=== PATIENT | female | born 1955 | race Caucasian/White ===

== ENCOUNTER 2017-11-14 14:40 | Inpatient (IN) | payer MEDICARE, MEDICAID ==
[~2017-11-14] VITALS: Ht 157.5 cm; Wt 66.2 kg
[2017-11-14] MEDS ORDERED: PRED2.5T4 PO (14:53)
[2017-11-14] MEDS ORDERED: MIRT15TA PO (14:53)
[2017-11-14] MEDS ORDERED: PROG1 MT (14:53)
[2017-11-14] MEDS ORDERED: THIJ IM (14:53)
[2017-11-14] MEDS ORDERED: KAYEXALATE (14:53)
[2017-11-14] MEDS ORDERED: FOLI-43 PO (14:53)
[2017-11-14] MEDS ORDERED: proair (14:53)
[2017-11-14] MEDS ORDERED: MYCO180T PO (14:53)
[2017-11-14] MEDS ORDERED: OMEP20CA10 PO (14:53)
[2017-11-14] MEDS ORDERED: CLON0.1T PO (14:53)
[2017-11-14] MEDS ORDERED: FURO-151 PO (14:53)
[2017-11-14] MEDS ORDERED: oscal (14:53)
[2017-11-14] MEDS ORDERED: ASPI-1159 PO (14:53)
[2017-11-14] MEDS ORDERED: METO5TAB69 PO (14:53)
[2017-11-14] MEDS ORDERED: MULT-1146 PO (14:53)
[2017-11-14] MEDS ORDERED: LEVO100T PO (14:53)
[2017-11-14 17:32] LABS: BASOPHILS % 0.8 % (0.0-2.0); EOSINOPHILS % 0.1 % (0.0-5.0); HEMATOCRIT. 37.9 % (36.0-48.0); HEMOGLOBIN. 12.5 g/dL (12.0-16.0); LYMPHOCYTES % 12.2 % (20.0-50.0); MEAN CORPUSCULAR HEMOGLOBIN 29.1 pg (28.0-32.0); MEAN CORPUSCULAR VOLUME 87.9 fL (81.0-99.0); MONOCYTES % 5.6 % (2.0-8.0); NEUTROPHILS % 81.3 % (40.0-76.0); PLATELET 184 x1000/uL (130-400); RED BLOOD CELL COUNT 4.31 mill/uL (4.2-5.4); RED CELL DISTRIBUTION WIDTH 16.6 % (11.6-14.6)
[2017-11-14 17:35] LABS: CHLORIDE 93 mEq/L (98-107)
[2017-11-14 17:36] LABS: INR 1.2; PROTHROMBIN TIME 12.6 sec (9.4-11.6)
[2017-11-14] MEDS ORDERED: CEFTRIAXONE 1 G PREMIX 50 ML IV ONE (19:00)
[2017-11-14] MEDS ORDERED: AZITHROMYCIN 500 MG in DEXT 5% WATER 250 ML IV ONE (19:00)
[2017-11-14] MEDS ORDERED: NA PHOS,M-B/NA PHOS,DI-BA ENEMA 118ML PR PRN (19:30)
[2017-11-14] MEDS ORDERED: GUAIFENESIN 200MG/10ML SUGAR FREE UDC PO PRN (19:30)
[2017-11-14] MEDS ORDERED: DIPHENHYDRAMINE 50MG/ML VIAL IV PRN (19:30)
[2017-11-14] MEDS ORDERED: CLONIDINE 0.1MG TABLET PO PRN (19:30)
[2017-11-14] MEDS ORDERED: DOCUSATE SODIUM 100MG CAPSULE PO PRN (19:30)
[2017-11-14] MEDS ORDERED: IPRATROPIUM/ALBUTEROL 0.5-3(2.5)MG/3ML NEB INH PRN (19:30)
[2017-11-14] MEDS ORDERED: ACETAMINOPHEN 325MG TABLET PO PRN (19:30)
[2017-11-14] MEDS ORDERED: MAGNESIUM/ALUMINUM HYDROXIDE/SIMETHICONE 30ML UDC PO PRN (19:30)
[2017-11-14] MEDS ORDERED: METOPROLOL TARTRATE 25MG TABLET PO SCH (21:00)
[2017-11-14] MEDS ORDERED: FAMOTIDINE 20MG TABLET PO SCH (21:00)
[2017-11-14] MEDS ORDERED: POTASSIUM CHLORIDE 20MEQ TABLET SR PO SCH (21:32)
[2017-11-14] MEDS ORDERED: ZOLPIDEM TARTRATE 5MG TABLET PO PRN (21:36)
[2017-11-14] MEDS ORDERED: TRAMADOL 50MG TABLET PO PRN (21:36)
[2017-11-14] MEDS ORDERED: LORAZEPAM 0.5MG TABLET PO PRN (21:37)
[2017-11-14] MEDS ORDERED: ONDANSETRON HCL 4MG/2ML VIAL IV PRN (21:37)
[2017-11-14 21:40] VITALS: BP 128/71
[2017-11-14 22:15] VITALS: BP 128/71
[2017-11-14] MEDS: FUROSEMIDE 40MG/4ML VIAL IVP SCH (23:17)
[2017-11-14] MEDS: GUAIFENESIN/DM 600MG/30MG ER TAB 12HR PO SCH (23:18)
[2017-11-14] MEDS: SPIRONOLACTONE 25MG TABLET PO SCH (23:18)
[2017-11-14] MEDS: TACROLIMUS 1MG CAPSULE PO SCH (23:20)
[2017-11-14 23:21] LABS: CREATINE KINASE MB FRACTION 2.3 ng/mL (0.5-3.6)
[2017-11-15] VITALS: BP 136/86
[2017-11-15 04:00] VITALS: BP 121/76
[2017-11-15 05:57] LABS: BASOPHILS % 0.9 % (0.0-2.0); EOSINOPHILS % 0.2 % (0.0-5.0); HEMATOCRIT. 35.7 % (36.0-48.0); HEMOGLOBIN. 11.7 g/dL (12.0-16.0); LYMPHOCYTES % 11.1 % (20.0-50.0); MEAN CORPUSCULAR VOLUME 88.7 fL (81.0-99.0); MEAN PLATELET VOLUME 7.7 fl (7.4-10.4); MONOCYTES % 8.3 % (2.0-8.0); NEUTROPHILS % 79.5 % (40.0-76.0); PLATELET 150 x1000/uL (130-400); RED BLOOD CELL COUNT 4.02 mill/uL (4.2-5.4); RED CELL DISTRIBUTION WIDTH 16.3 % (11.6-14.6)
[2017-11-15] MEDS: LEVOTHYROXINE SODIUM 100MCG TABLET PO SCH (06:22)
[2017-11-15 06:27] LABS: CHLORIDE 95 mEq/L (98-107)
[2017-11-15 06:36] LABS: HDL CHOLESTEROL 27 mg/dL (40-59)
[2017-11-15 06:39] LABS: LDL CHOLESTEROL 80 mg/dL (5-100)
[2017-11-15 06:40] LABS: CREATINE KINASE 83 IU/L (26-192)
[2017-11-15 06:44] LABS: CREATINE KINASE MB FRACTION 2.7 ng/mL (0.5-3.6)
[2017-11-15] MEDS ORDERED: POTASSIUM CHLORIDE 20MEQ/PACKET PO NR (07:30)
[2017-11-15 08:53] VITALS: BP 117/73
[2017-11-15] MEDS ORDERED: MYCOPHENOLATE SODIUM 180 MG TABLET.DR PO SCH (09:00)
[2017-11-15] MEDS ORDERED: ALBUMIN HUMAN 25GM/100ML (25%) IV SCH (10:00)
[2017-11-15] MEDS: AMLODIPINE 2.5MG TABLET PO SCH ×2 (10:48→20:49)
[2017-11-15] MEDS: SPIRONOLACTONE 25MG TABLET PO SCH ×2 (10:48→20:50)
[2017-11-15] MEDS: TACROLIMUS 1MG CAPSULE PO SCH ×2 (10:48→16:41)
[2017-11-15] MEDS: GUAIFENESIN/DM 600MG/30MG ER TAB 12HR PO SCH ×2 (10:48→20:49)
[2017-11-15] MEDS: FUROSEMIDE 40MG/4ML VIAL IVP SCH ×2 (10:48→20:50)
[2017-11-15] MEDS: FAMOTIDINE 20MG TABLET PO SCH (10:49)
[2017-11-15] MEDS: PREDNISONE 5MG TABLET PO SCH (10:49)
[2017-11-15] MEDS: ENOXAPARIN 30MG/0.3ML SYR SUBCUT SCH (10:49)
[2017-11-15 12:27] LABS: CLARITY URINE CLEAR (CLEAR); COLOR URINE DARK YELLOW (YELLOW); KETONES URINE NEGATIVE (NEGATIVE); LEUKOCYTE ESTERASE URINE NEGATIVE (NEGATIVE); NITRITE URINE NEGATIVE (NEGATIVE); OCCULT BLOOD URINE TRACE (NEGATIVE); PROTEIN URINE 3+ (NEGATIVE); SPECIFIC GRAVITY URINE 1.017 (1.005-1.030); UROBILINOGEN URINE 0.2 E.U./dL (0.2-1.0)
[2017-11-15 12:35] LABS: SODIUM URINE RANDOM 41 mEq/L
[2017-11-15 12:44] LABS: *AMPHETAMINES SCREEN URINE NEGATIVE (NEGATIVE); *BARBITURATES SCREEN URINE NEGATIVE (NEGATIVE); *BENZODIAZEPINES SCREEN URINE NEGATIVE (NEGATIVE); *COCAINE SCREEN URINE NEGATIVE (NEGATIVE); METHADONE URINE SCREEN NEGATIVE (NEGATIVE); PHENCYCLIDINE URINE SCREEN NEGATIVE (NEGATIVE)
[2017-11-15 12:45] VITALS: BP 120/68
[2017-11-15 12:46] LABS: OPIATES URINE SCREEN NEGATIVE (NEGATIVE)
[2017-11-15 12:47] LABS: CANNABINOID URINE SCREEN NEGATIVE (NEGATIVE)
[2017-11-15 16:22] VITALS: BP 115/75
[2017-11-15] MEDS: IPRATROPIUM/ALBUTEROL 0.5-3(2.5)MG/3ML NEB HHN SCH ×2 (16:32→20:43)
[2017-11-15] MEDS: AZITHROMYCIN 500 MG in DEXT 5% WATER 250 ML IV SCH (16:41)
[2017-11-15] MEDS: CEFTRIAXONE 1 G PREMIX 50 ML IV SCH (18:48)
[2017-11-15] MEDS ORDERED: AZITHROMYCIN 500 MG in DEXT 5% WATER 250 ML IV SCH (19:00)
[2017-11-15 20:00] VITALS: BP 110/80
[2017-11-15] MEDS ORDERED: CEFTRIAXONE 1 G PREMIX 50 ML IV SCH (20:00)
[2017-11-16] VITALS: BP 138/78
[2017-11-16] MEDS: IPRATROPIUM/ALBUTEROL 0.5-3(2.5)MG/3ML NEB HHN SCH ×4 (02:45→20:50)
[2017-11-16 04:00] VITALS: BP 125/75
[2017-11-16] MEDS: LEVOTHYROXINE SODIUM 100MCG TABLET PO SCH (06:33)
[2017-11-16 07:17] LABS: BASOPHILS % 0.8 % (0.0-2.0); EOSINOPHILS % 0.5 % (0.0-5.0); HEMOGLOBIN. 11.8 g/dL (12.0-16.0); LYMPHOCYTES % 12.1 % (20.0-50.0); MEAN CORPUSCULAR HEMOGLOBIN 28.9 pg (28.0-32.0); MEAN CORPUSCULAR VOLUME 88.5 fL (81.0-99.0); MEAN PLATELET VOLUME 7.7 fl (7.4-10.4); MONOCYTES % 5.2 % (2.0-8.0); NEUTROPHILS % 81.4 % (40.0-76.0); PLATELET 154 x1000/uL (130-400); RED BLOOD CELL COUNT 4.07 mill/uL (4.2-5.4); RED CELL DISTRIBUTION WIDTH 16.5 % (11.6-14.6)
[2017-11-16 07:36] LABS: CHLORIDE 95 mEq/L (98-107)
[2017-11-16 07:48] LABS: PHOSPHORUS 4.1 mg/dL (2.5-4.9)
[2017-11-16 07:49] LABS: CREATINE KINASE 102 IU/L (26-192); CREATINE KINASE MB FRACTION 2.6 ng/mL (0.5-3.6)
[2017-11-16 07:51] LABS: LDL CHOLESTEROL 85 mg/dL (5-100)
[2017-11-16 07:52] LABS: HDL CHOLESTEROL 27 mg/dL (40-59)
[2017-11-16 08:00] VITALS: BP 152/92
[2017-11-16] MEDS: TACROLIMUS 1MG CAPSULE PO SCH ×2 (09:12→17:33)
[2017-11-16] MEDS: GUAIFENESIN/DM 600MG/30MG ER TAB 12HR PO SCH ×2 (09:13→21:15)
[2017-11-16] MEDS: AMLODIPINE 2.5MG TABLET PO SCH (09:13)
[2017-11-16] MEDS: FUROSEMIDE 40MG/4ML VIAL IVP SCH ×2 (09:13→21:15)
[2017-11-16] MEDS: ENOXAPARIN 30MG/0.3ML SYR SUBCUT SCH (09:13)
[2017-11-16] MEDS: FAMOTIDINE 20MG TABLET PO SCH (09:14)
[2017-11-16] MEDS: SPIRONOLACTONE 25MG TABLET PO SCH ×2 (09:14→21:15)
[2017-11-16] MEDS: PREDNISONE 5MG TABLET PO SCH (09:14)
[2017-11-16] MEDS: CEFTRIAXONE 1 G PREMIX 50 ML IV SCH (09:15)
[2017-11-16] MEDS: AZITHROMYCIN 500 MG in DEXT 5% WATER 250 ML IV SCH (09:33)
[2017-11-16 11:38] LABS: T4 FREE 1.13 ng/dL (0.76-1.46)
[2017-11-16 12:00] VITALS: BP 132/79
[2017-11-16] MEDS ORDERED: DOBUTAMINE 250MG PREMIX 250 ML IV ONE (12:52)
[2017-11-16] MEDS ORDERED: DOBUTAMINE 250MG PREMIX 250 ML IV NR (13:00)
[2017-11-16] MEDS ORDERED: ATROPINE SULFATE 1MG/10ML SYR ONE (13:12)
[2017-11-16] MEDS: HYDRALAZINE HCL 50MG TABLET PO SCH ×2 (15:07→22:58)
[2017-11-16 16:00] VITALS: BP 154/76
[2017-11-16 20:00] VITALS: BP 160/84
[2017-11-16] MEDS: AMLODIPINE 5MG TABLET PO SCH (21:15)
[2017-11-17] VITALS: BP 141/80
[2017-11-17] MEDS: IPRATROPIUM/ALBUTEROL 0.5-3(2.5)MG/3ML NEB HHN SCH ×2 (01:18→09:08)
[2017-11-17 04:00] VITALS: BP 139/79
[2017-11-17] MEDS: HYDRALAZINE HCL 50MG TABLET PO SCH ×2 (06:00→06:32)
[2017-11-17 06:55] LABS: BASOPHILS % 0.5 % (0.0-2.0); EOSINOPHILS % 0.2 % (0.0-5.0); HEMATOCRIT. 33.4 % (36.0-48.0); HEMOGLOBIN. 11.1 g/dL (12.0-16.0); LYMPHOCYTES % 10.7 % (20.0-50.0); MEAN CORPUSCULAR HEMOGLOBIN 28.9 pg (28.0-32.0); MEAN CORPUSCULAR VOLUME 87.3 fL (81.0-99.0); MEAN PLATELET VOLUME 7.3 fl (7.4-10.4); MONOCYTES % 6.8 % (2.0-8.0); NEUTROPHILS % 81.8 % (40.0-76.0); PLATELET 181 x1000/uL (130-400); RED BLOOD CELL COUNT 3.83 mill/uL (4.2-5.4); RED CELL DISTRIBUTION WIDTH 16.3 % (11.6-14.6)
[2017-11-17 07:05] LABS: CHLORIDE 92 mEq/L (98-107)
[2017-11-17] MEDS ORDERED: LEVOTHYROXINE SODIUM 125MCG TABLET PO SCH (07:10)
[2017-11-17 07:18] LABS: PHOSPHORUS 3.7 mg/dL (2.5-4.9)
[2017-11-17 08:00] VITALS: BP 150/84
[2017-11-17] MEDS: FUROSEMIDE 40MG/4ML VIAL IVP SCH (08:27)
[2017-11-17] MEDS: SPIRONOLACTONE 25MG TABLET PO SCH (08:28)
[2017-11-17] MEDS: ENOXAPARIN 30MG/0.3ML SYR SUBCUT SCH (08:28)
[2017-11-17] MEDS: AMLODIPINE 5MG TABLET PO SCH (08:28)
[2017-11-17] MEDS: GUAIFENESIN/DM 600MG/30MG ER TAB 12HR PO SCH (08:28)
[2017-11-17] MEDS: PREDNISONE 5MG TABLET PO SCH (08:28)
[2017-11-17] MEDS: FAMOTIDINE 20MG TABLET PO SCH (08:28)
[2017-11-17] MEDS: TACROLIMUS 1MG CAPSULE PO SCH (08:28)
[2017-11-17] MEDS: AZITHROMYCIN 500 MG in DEXT 5% WATER 250 ML IV SCH (08:28)
[2017-11-17] MEDS: CEFTRIAXONE 1 G PREMIX 50 ML IV SCH (09:39)
[2017-11-17 12:31] VITALS: BP 147/64
== END 2017-11-17 12:12 | disposition left against medical advice (07) | DRG 871 ==
LOC: ER 17:23 → 8WST 19:08 → EDBEDREQSVC 19:08 → EDBEDREQ 19:08 → EDBEDREQTM 19:08 → SUPCPDRO 19:17 → ENRESERV 20:42
PROVIDERS: ADMIT Internal Medicine; ATTEND Internal Medicine
DX: A41.9 Sepsis, unspecified organism (principal); I21.4 Non-ST elevation (NSTEMI) myocardial infarction; J96.00 Acute respiratory failure, unspecified whether with hypoxia or hypercapnia; J18.9 Pneumonia, unspecified organism; I13.2 Hypertensive heart and chronic kidney disease with heart failure and with stage 5 chronic kidney disease, or end stage renal disease; N17.9 Acute kidney failure, unspecified; E44.0 Moderate protein-calorie malnutrition; E87.1 Hypo-osmolality and hyponatremia; I50.9 Heart failure, unspecified; I27.20 Pulmonary hypertension, unspecified; K74.60 Unspecified cirrhosis of liver; E03.9 Hypothyroidism, unspecified; E87.6 Hypokalemia; K21.9 Gastro-esophageal reflux disease without esophagitis; D64.9 Anemia, unspecified
CPT/HCPCS: 36415; 71045; 74176; 78452; 80053; 80061; 80305; 81003; 82533; 82550; 82553; 83036; 83605; 83735; 83880; 83930; 83935; 84100; 84300; 84439; 84443; 84481; 84484; 85025; 85379; 85610; 87040; 87070; 93005; 93017; 93306; 93970; 94640; 96365; 96367; 97162; 97530; 99291; A9500; J0456; J0461; J0696; J1250; J1650; J1940; J2405; J7050; J7060; J7507; J7512; J7620; P9047

== ENCOUNTER 2018-09-16 21:23 | Inpatient (IN) | payer MEDICARE, MEDICAID ==
[~2018-09-16] VITALS: Ht 162.6 cm; Wt 53.8 kg
[~2018-09-16 21:23] MED LIST: ASPI-1159 PO; CLON0.1T PO; FOLI-43 PO; FURO-151 PO; KAYEXALATE; LEVO100T PO; METO5TAB69 PO; MIRT15TA PO; MULT-1146 PO; MYCO180T PO; OMEP20CA10 PO; PRED2.5T4 PO; PROG1 MT; THIJ IM; oscal; proair
[2018-09-16] MEDS ORDERED: ONDANSETRON HCL 4MG/2ML INJ IV STA (22:22)
[2018-09-16] MEDS ORDERED: MORPHINE SULFATE 4 MG/ML CPJ (NOT FOR IM USE) IV STA (22:22)
[2018-09-16 22:49] LABS: BASOPHILS % 0.4 % (0.0-2.0); EOSINOPHILS % 0.2 % (0.0-5.0); HEMATOCRIT. 30.8 % (36.0-48.0); HEMOGLOBIN. 9.4 g/dL (12.0-16.0); LYMPHOCYTES % 2.5 % (20.0-50.0); MEAN CORPUSCULAR HEMOGLOBIN 29.3 pg (28.0-32.0); MEAN PLATELET VOLUME 7.5 fl (7.4-10.4); MONOCYTES % 3.9 % (2.0-8.0); PLATELET 141 x1000/uL (130-400); RED BLOOD CELL COUNT 3.21 mill/uL (4.2-5.4); RED CELL DISTRIBUTION WIDTH 18.8 % (11.6-14.6)
[2018-09-16 22:54] LABS: CHLORIDE 100 mEq/L (98-107); INR 1.2; PROTHROMBIN TIME 11.9 sec (9.1-11.1)
[2018-09-16] MEDS ORDERED: ACETAMINOPHEN 500MG TABLET PO ONE (23:45)
[2018-09-17] MEDS ORDERED: POTASSIUM CHLORIDE 20MEQ TABLET SR PO ONE
[2018-09-17] MEDS ORDERED: ONDANSETRON HCL 4MG/2ML INJ IV ONE (00:15)
[2018-09-17] MEDS ORDERED: LIDOCAINE HCL 1% 20ML VIAL (Pyxis) INJ INFIL ONE (00:45)
[2018-09-17] MEDS ORDERED: ACETAMINOPHEN 500MG TABLET PO ONE (02:45)
[2018-09-17 02:57] LABS: CLARITY URINE TURBID (CLEAR); COLOR URINE AMBER (YELLOW); KETONES URINE TRACE (NEGATIVE); PH URINE 5.5 (4.5-8.0); PROTEIN URINE 4+ (NEGATIVE); SPECIFIC GRAVITY URINE 1.036 (1.005-1.030)
[2018-09-17 02:58] LABS: NITRITE URINE NEGATIVE (NEGATIVE); OCCULT BLOOD URINE 3+ (NEGATIVE)
[2018-09-17 02:59] LABS: LEUKOCYTE ESTERASE URINE 1+ (NEGATIVE)
[2018-09-17] MEDS ORDERED: PIPERACILLIN/TAZOBACTAM 3.375GM/50ML PREMIX IV SCH (03:00)
[2018-09-17] MEDS ORDERED: VANCOMYCIN 1 G PREMIX 200 ML IV SCH (03:00)
[2018-09-17 08:50] VITALS: BP 110/65
[2018-09-17] MEDS ORDERED: CLONIDINE 0.1MG TABLET PO PRN (10:45)
[2018-09-17] MEDS ORDERED: DIPHENHYDRAMINE 50MG/ML VIAL IV PRN (10:45)
[2018-09-17] MEDS ORDERED: IPRATROPIUM/ALBUTEROL 0.5-3(2.5)MG/3ML NEB INH PRN (10:45)
[2018-09-17] MEDS ORDERED: HYDRALAZINE 20MG/ML VIAL IV PRN (10:45)
[2018-09-17] MEDS ORDERED: ACETAMINOPHEN 650MG/20.3ML UDC GT PRN (10:45)
[2018-09-17] MEDS ORDERED: NA PHOS,M-B/NA PHOS,DI-BA ENEMA 118ML PR PRN (10:45)
[2018-09-17] MEDS ORDERED: DOCUSATE SODIUM 100MG CAPSULE PO PRN (10:45)
[2018-09-17] MEDS ORDERED: MAGNESIUM/ALUMINUM HYDROXIDE/SIMETHICONE 30ML UDC PO PRN (10:45)
[2018-09-17] MEDS ORDERED: ACETAMINOPHEN 650MG SUPP PR PRN (10:45)
[2018-09-17] MEDS ORDERED: ONDANSETRON HCL 4MG/2ML INJ IV PRN (10:45)
[2018-09-17 11:35] LABS: HEMATOCRIT. 26.2 % (36.0-48.0); HEMOGLOBIN. 8.1 g/dL (12.0-16.0); MEAN CORPUSCULAR VOLUME 97.6 fL (81.0-99.0); MEAN PLATELET VOLUME 7.6 fl (7.4-10.4); PLATELET 108 x1000/uL (130-400); RED BLOOD CELL COUNT 2.69 mill/uL (4.2-5.4)
[2018-09-17 11:40] LABS: CHLORIDE 103 mEq/L (98-107)
[2018-09-17 12:00] VITALS: BP 128/67
[2018-09-17] MEDS ORDERED: METRONIDAZOLE 500 MG PREMIX 100 ML IV SCH (13:00)
[2018-09-17] MEDS: CEFTRIAXONE 1 G PREMIX 50 ML IV SCH (13:07)
[2018-09-17] MEDS: SODIUM CHLORIDE 0.9% INJ 3ML FLUSH IVF SCH ×2 (13:20→21:54)
[2018-09-17] MEDS ORDERED: GUAIFENESIN/CODEINE 200-20MG/10ML UDC PO PRN (15:00)
[2018-09-17 16:00] VITALS: BP 136/71
[2018-09-17] MEDS: METRONIDAZOLE 500 MG PREMIX 100 ML IV SCH ×2 (16:08→21:53)
[2018-09-17 17:00] LABS: CREATINE KINASE 74 IU/L (26-192)
[2018-09-17 17:01] LABS: CREATINE KINASE MB FRACTION < 1.0 ng/mL (0.5-3.6)
[2018-09-17] MEDS: ACETAMINOPHEN 325MG TABLET PO PRN (17:44)
[2018-09-17 20:00] VITALS: BP 124/69
[2018-09-17 23:19] LABS: CREATINE KINASE 72 IU/L (26-192)
[2018-09-17 23:20] LABS: CREATINE KINASE MB FRACTION < 1.0 ng/mL (0.5-3.6)
[2018-09-18] VITALS: BP 177/61
[2018-09-18] MEDS: GUAIFENESIN 200MG/10ML SUGAR FREE UDC PO PRN (01:33)
[2018-09-18 04:00] VITALS: BP 137/84
[2018-09-18] MEDS: METRONIDAZOLE 500 MG PREMIX 100 ML IV SCH ×3 (06:18→22:37)
[2018-09-18] MEDS: SODIUM CHLORIDE 0.9% INJ 3ML FLUSH IVF SCH ×3 (06:18→22:37)
[2018-09-18] MEDS: HYDROCODONE/ACETAMINOPHEN 5/325MG TABLET PO PRN ×2 (06:19→19:44)
[2018-09-18 06:33] LABS: BASOPHILS % 1.2 % (0.0-2.0); EOSINOPHILS % 0.4 % (0.0-5.0); HEMOGLOBIN. 8.1 g/dL (12.0-16.0); LYMPHOCYTES % 8.9 % (20.0-50.0); MEAN CORPUSCULAR HEMOGLOBIN 30.2 pg (28.0-32.0); MEAN CORPUSCULAR VOLUME 96.7 fL (81.0-99.0); MEAN PLATELET VOLUME 7.4 fl (7.4-10.4); MONOCYTES % 6.3 % (2.0-8.0); NEUTROPHILS % 83.2 % (40.0-76.0); PLATELET 107 x1000/uL (130-400); RED BLOOD CELL COUNT 2.69 mill/uL (4.2-5.4); RED CELL DISTRIBUTION WIDTH 18.7 % (11.6-14.6)
[2018-09-18 07:51] LABS: PLATELET ESTIMATE DECREASED
[2018-09-18 08:00] VITALS: BP 127/66
[2018-09-18 08:21] LABS: CHLORIDE 102 mEq/L (98-107)
[2018-09-18 08:28] LABS: LDL CHOLESTEROL 51 mg/dL (5-100)
[2018-09-18 08:29] LABS: HDL CHOLESTEROL 39 mg/dL (40-59)
[2018-09-18 12:00] VITALS: BP 118/69
[2018-09-18] MEDS: CEFTRIAXONE 1 G PREMIX 50 ML IV SCH (13:14)
[2018-09-18] MEDS ORDERED: SODIUM BICARBONATE 4% (2.4MEQ) 5ML VIAL IV ONE (13:24)
[2018-09-18] MEDS ORDERED: LIDOCAINE HCL 1% 20ML VIAL (Pyxis) INJ ONE (13:24)
[2018-09-18 14:38] LABS: *AMPHETAMINES SCREEN URINE NEGATIVE (NEGATIVE); *BARBITURATES SCREEN URINE NEGATIVE (NEGATIVE); *BENZODIAZEPINES SCREEN URINE NEGATIVE (NEGATIVE)
[2018-09-18 14:39] LABS: *COCAINE SCREEN URINE NEGATIVE (NEGATIVE); CANNABINOID URINE SCREEN NEGATIVE (NEGATIVE); METHADONE URINE SCREEN NEGATIVE (NEGATIVE); OPIATES URINE SCREEN PRESUMTIVE POSITIVE (NEGATIVE); PHENCYCLIDINE URINE SCREEN NEGATIVE (NEGATIVE)
[2018-09-18 16:00] VITALS: BP 99/55
[2018-09-18] MEDS: DOCUSATE SODIUM 100MG CAPSULE PO SCH (17:56)
[2018-09-18 17:58] LABS: TOTAL IRON BINDING CAPACITY 311 ug/dL (250-450)
[2018-09-18 20:00] VITALS: BP 129/75
[2018-09-18] MEDS ORDERED: EPOETIN ALFA 10000UNITS/ML VIAL SUBCUT SCH (21:00)
[2018-09-19] VITALS: BP 104/72
[2018-09-19] MEDS: ACETAMINOPHEN 325MG TABLET PO PRN ×2 (01:21→20:25)
[2018-09-19 05:50] LABS: BASOPHILS % 2.5 % (0.0-2.0); EOSINOPHILS % 0.8 % (0.0-5.0); HEMATOCRIT. 25.4 % (36.0-48.0); HEMOGLOBIN. 7.9 g/dL (12.0-16.0); LYMPHOCYTES % 12.7 % (20.0-50.0); MEAN CORPUSCULAR HEMOGLOBIN 30.2 pg (28.0-32.0); MEAN CORPUSCULAR VOLUME 96.6 fL (81.0-99.0); MEAN PLATELET VOLUME 7.8 fl (7.4-10.4); MONOCYTES % 7.6 % (2.0-8.0); NEUTROPHILS % 76.4 % (40.0-76.0); PLATELET 96 x1000/uL (130-400); RED BLOOD CELL COUNT 2.63 mill/uL (4.2-5.4); RED CELL DISTRIBUTION WIDTH 18.2 % (11.6-14.6)
[2018-09-19] MEDS: SODIUM CHLORIDE 0.9% INJ 3ML FLUSH IVF SCH ×3 (06:03→20:26)
[2018-09-19] MEDS: METRONIDAZOLE 500 MG PREMIX 100 ML IV SCH (06:03)
[2018-09-19 06:33] LABS: CHLORIDE 100 mEq/L (98-107)
[2018-09-19 06:41] LABS: PHOSPHORUS 5.5 mg/dL (2.5-4.9)
[2018-09-19] MEDS: DOCUSATE SODIUM 100MG CAPSULE PO SCH ×2 (09:11→16:37)
[2018-09-19 12:00] VITALS: BP 149/79
[2018-09-19] MEDS: GUAIFENESIN 200MG/10ML SUGAR FREE UDC PO PRN (12:32)
[2018-09-19] MEDS: PIPERACILLIN/TAZ 2.25G PREMIX 50 ML IV SCH ×2 (12:32→16:37)
[2018-09-19] MEDS ORDERED: VANCOMYCIN 1 G PREMIX 200 ML IV NR (15:00)
[2018-09-19 16:00] VITALS: BP 116/63
[2018-09-19 20:00] VITALS: BP 102/55
[2018-09-19] MEDS: HYDROCODONE/ACETAMINOPHEN 5/325MG TABLET PO PRN (20:26)
[2018-09-20] VITALS: BP 120/56
[2018-09-20] MEDS: PIPERACILLIN/TAZ 2.25G PREMIX 50 ML IV SCH ×2 (00:50→09:50)
[2018-09-20 04:00] VITALS: BP 132/57
[2018-09-20] MEDS: SODIUM CHLORIDE 0.9% INJ 3ML FLUSH IVF SCH ×2 (05:10→14:59)
[2018-09-20 07:23] LABS: CHLORIDE 100 mEq/L (98-107)
[2018-09-20 07:58] LABS: BASOPHILS % 1.8 % (0.0-2.0); LYMPHOCYTES % 25.2 % (20.0-50.0); MEAN CORPUSCULAR VOLUME 97.4 fL (81.0-99.0); MONOCYTES % 12.2 % (2.0-8.0); NEUTROPHILS % 58.8 % (40.0-76.0); PLATELET 95 x1000/uL (130-400); RED BLOOD CELL COUNT 2.98 mill/uL (4.2-5.4); RED CELL DISTRIBUTION WIDTH 18.8 % (11.6-14.6)
[2018-09-20 08:00] VITALS: BP 122/63
[2018-09-20] MEDS: DOCUSATE SODIUM 100MG CAPSULE PO SCH (09:50)
[2018-09-20 12:00] VITALS: BP 109/62
[2018-09-20] MEDS ORDERED: EPOE10005 SUBCUT (13:34)
[2018-09-20] MEDS ORDERED: CEFT1VIA15 IV (13:34)
[2018-09-20] MEDS ORDERED: METR500T MT (13:38)
[2018-09-20] MEDS: ACETAMINOPHEN 325MG TABLET PO PRN (14:05)
[2018-09-20 14:29] VITALS: BP 109/62
== END 2018-09-20 15:44 | DRG 871 ==
LOC: ER 21:23 → 8WST 09-17 00:02 → EDBEDREQ 09-17 00:06 → EDBEDREQDT 09-17 00:06 → EDBEDREQTM 09-17 00:06 → ENRESERV 09-17 07:29
PROVIDERS: ADMIT Family Medicine; ATTEND Family Medicine
PROC: 0W9G3ZZ Drainage of Peritoneal Cavity, Percutaneous Approach (ICD-10-PCS; 2018-09-17)
PROC: 0W9G3ZZ Drainage of Peritoneal Cavity, Percutaneous Approach (ICD-10-PCS; principal; 2018-09-18)
PROC: 5A1D70Z Performance of Urinary Filtration, Intermittent, Less than 6 Hours Per Day (ICD-10-PCS; 2018-09-19)
PROC: 5A1D70Z Performance of Urinary Filtration, Intermittent, Less than 6 Hours Per Day (ICD-10-PCS; 2018-09-20)
DX: A41.9 Sepsis, unspecified organism (principal); N18.6 End stage renal disease; R18.8 Other ascites; I12.0 Hypertensive chronic kidney disease with stage 5 chronic kidney disease or end stage renal disease; D61.818 Other pancytopenia; Z94.0 Kidney transplant status; R65.20 Severe sepsis without septic shock; E03.9 Hypothyroidism, unspecified; K74.60 Unspecified cirrhosis of liver; F32.9 Major depressive disorder, single episode, unspecified; J44.9 Chronic obstructive pulmonary disease, unspecified; I48.91 Unspecified atrial fibrillation; Z99.2 Dependence on renal dialysis; Z82.49 Family history of ischemic heart disease and other diseases of the circulatory system; Z86.711 Personal history of pulmonary embolism; Z87.01 Personal history of pneumonia (recurrent); Z88.8 Allergy status to other drugs, medicaments and biological substances; Z79.82 Long term (current) use of aspirin; Z79.899 Other long term (current) drug therapy; Z88.6 Allergy status to analgesic agent; Z90.49 Acquired absence of other specified parts of digestive tract
CPT/HCPCS: 36415; 49083; 71045; 74176; 80061; 80202; 80305; 82040; 82550; 82553; 82728; 82962; 83540; 83550; 83605; 83735; 84100; 84484; 87804; 93005; 96374; 96375; 97162; 99285; J0696; J0885; J2270; J2405; J2543; J3370; J3490; J7040; J7060; J7620